=== PATIENT | female | born 1995 | race Asian ===

== ENCOUNTER → 2021-09-09 12:53 | Outpatient (CLI) | payer OTHER, SELFPAY ==
[2021-09-09 13:24] LABS: Appearance Urine UA CLEAR; Bilirubin Urine UA NEGATIVE (NEGATIVE); Color Urine UA YELLOW; Glucose Urine UA NEGATIVE (Negative); Ketones Urine UA NEGATIVE (NEGATIVE); Leukocyte Esterase Urine UA NEGATIVE (NEGATIVE); Nitrite Urine UA NEGATIVE (Negative); Occult Blood Urine UA NEGATIVE (Negative); Protein Urine UA NEGATIVE (Negative); Urobilinogen Urine UA 0.2 E.U./dL (0.2)
[2021-09-09 13:40] LABS: Add Manual Diff / Slide Review NO; Basophils Absolute Auto 100 /uL (0-100); Basophils Percent Auto 0.6 % (0-2); Eosinophils Absolute Auto 100 /uL (0-450); Eosinophils Percent Auto 0.9 % (2-4); Hematocrit 38.5 % (36-46); Hemoglobin 12.7 g/dL (12.0-16.0); Lymphocytes Absolute Auto 1600 /uL (1100-4500); Lymphocytes Percent Auto 12.3 % (25-40); Mean Corpuscular HGB Conc 32.9 % (30-36); Mean Corpuscular Hemoglobin 27.2 PG (26-34); Mean Corpuscular Volume 82.9 fL (80-100); Monocytes Absolute Auto 700 /uL (0-900); Monocytes Percent Auto 5.9 % (3-14); Neutrophils Absolute Auto 10100 /uL (1500-7000); Neutrophils Percent Auto 80.3 % (50-75); Platelet Count 318 X10^3/uL (150-400); Red Blood Cell Count 4.65 X10^6/uL (4.0-5.2); Red Cell Distribution Width 13.6 % (11.6-14.8); White Blood Cell Count 12.6 X10^3/uL (4.5-11.0)
[2021-09-09 16:40] LABS: Hepatitis B Surface Antigen NEGATIVE s/c (NEGATIVE); Rubella Antibody IgG 28.4 IU/mL (>15)
[2021-09-09 16:49] LABS: HIV 1 & 2 Ab/Ag 4th Gen Combo NEGATIVE (NEGATIVE); Hep C Virus Ab w/Reflex Quant NEGATIVE s/c (NEGATIVE)
[2021-09-10 14:01] LABS: Varicella IgG Antibody 211 index (Immune >165)
== END ==
PROVIDERS: Referring Provider Family Medicine; Visit Provider Family Medicine
DX: Z34.00 Encounter for supervision of normal first pregnancy, unspecified trimester (principal)
CPT/HCPCS: 36415; 80055; 81003; 86787; 86803; 86850; 86900; 86901; 87086; 87389

== ENCOUNTER 2021-10-12 10:56 | Emergency (ER) | payer OTHER, SELFPAY ==
[2021-10-12 11:05] VITALS: BP 117/57; PULSE 64; RESP 16; TEMP 36.2; O2SAT 100; BMI 25.4
[2021-10-12 12:04] VITALS: O2SAT 99
[2021-10-12 12:30] VITALS: PULSE 68; O2SAT 100
[2021-10-12 12:31] VITALS: BP 111/67; PULSE 66; O2SAT 100
--- NOTE | 2021-10-12 12:42 | ED_ITS ---
HPI - Extremity Problem <YULIYA Hobbs - Last Filed: 10/12/21 18:59> General Chief complaint: Extremity Problem,Nontraumatic Stated complaint: Pain in both legs/lower back. 15 wks Time Seen by Provider: 10/12/21 12:05 Source: patient Mode of arrival: Ambulatory History of Present Illness HPI Narrative: 26-year-old female who is 14 weeks presents to the emergency department complaining of low back pain with sharp shooting pain down her buttocks and down her legs, she says bilateral and occasional. Patient states this started approximately 3 days ago, and she has never had this pain in the past, she denies any weakness, loss of bowel or bladder, states the pain is sharp and travels like a nerve/shoots down and then goes away. She states that she is afraid to because spasms will come on all of a sudden. She has only taken Tylenol home, she has not tried any other remedies. She denies any difficulty walking, she denies any sensation changes all of the time but she does endorse numbness and tingling when the pain shoots down her leg. She says this happened on both sides and her pain is in the middle of her lower back. Related Data Home Medications Medication Instructions Recorded Confirmed ascorbic acid (vitamin C) 1,000 mg 1 g PO Q6H 09/09/21 09/09/21 tablet cholecalciferol (vitamin D3) 50 50 mcg PO DAILY 09/09/21 09/09/21 mcg (2,000 unit) capsule prenat.vits,zi,[id number] 1 tab PO DAILY 09/09/21 09/09/21 Previous Rx's Medication Instructions Recorded lidocaine 5 % topical patch 1 patch TOPICAL DAILY PRN #15 ea 10/12/21 (Lidoderm) Allergies Allergy/AdvReac Type Severity Reaction Status Date / Time No Known Drug Allergies Allergy Verified 10/12/21 11:05 Review of Systems <YULIYA Hobbs - Last Filed: 10/12/21 18:59> Review of Systems Narrative: General: denies fever, chills, malaise, sweats, fatigue Head/Neck: denies headache, neck pain, dizziness Eyes: denies visual changes, eye pain Cardio: denies chest pain, palpitations, edema Respiratory: denies dyspnea, cough, orthopnea GI: 14 weeks , denies abdominal pain, nausea, vomiting, or diarrhea : denies dysuria, hematuria, urinary retention, frequency or incontinence MSK: denies joint pain, muscle weakness, endorses low back pain with sciatica Skin: denies rash, itching, skin lesions or other Neuro: denies numbness, tingling Patient History <YULIYA Hobbs - Last Filed: 10/12/21 18:59> Social History marital status: unmarried,living together number of children: 0 household members: significant other lives independently: Yes housing: house pets and animals: No education level: college occupational status: unemployed current occupational exposures/hazards: No sp/episcopalian: Jehov[employer] Witness travel history: recent ([facility]) and over 6 months ago seatbelt use: always water heater temp set < 120 deg: Yes working smoke detector in home: Yes fire extinguisher in home: Yes carbon monox detector in home: Yes firearms in home: No do you feel safe at home: Yes Smoking Status: Never smoker second hand exposure: No alcohol intake: former substance use type: does not use during the past year weight has: remained stable well-balanced diet: daily or most days daily servings fruits/ve-4 caffeine: Yes (Limit 200 mg) eating out: 1-3 times/week Type(s) of exercise: walking and regular exercise Smoking Status: Never smoker Substance Use Type: does not use Exam <YULIYA Hobbs - Last Filed: 10/12/21 18:59> Narrative Exam Narrative: Independently reviewed vitals signs and nursing notes. General: cooperative, comfortable, in no acute distress, well developed and well groomed Head: atraumatic, symmetrical facial expressions Neck: supple, atraumatic, without lymphadenopathy. Eyes: pupils equal round and reactive, EOMI, conjunctiva normal Nose: nares patent, no rhinorrhea Mouth/Throat: uvula midline, moist mucus membranes Cardiovascular: regular rate and rhythm, no peripheral edema, warm extremities Respiratory: normal effort, able to speak in complete sentences, no audible wheezing, stridor, or rales. No retractions or tachypnea. GI: Gravid, fundus below the umbilicus, abdomen soft, no masses, no exquisite tenderness with exam, without guarding or rebound. MSK: moves all extremities, ambulatory w/steady gait, neurovascularly intact, no weakness Skin: brisk capillary refill, no rash, no erythema Neuro: normal speech and cognition, A&O x3, normal tone Psych: mental status is grossly normal, congruent mood, normal affect, pleasant and cooperative Initial Vital Signs Initial Vital Signs: Vital Signs Temperature 97.1 F L 10/12/21 11:05 Pulse Rate 64 10/12/21 11:05 Respiratory Rate 16 10/12/21 11:05 Blood Pressure 117/57 L 10/12/21 11:05 Pulse Oximetry 100 10/12/21 11:05 <Dione Saldaña DO - Last Filed: 10/13/21 07:46> Initial Vital Signs Initial Vital Signs: Vital Signs Temperature 97.1 F L 10/12/21 11:05 Pulse Rate 64 10/12/21 11:05 Respiratory Rate 16 10/12/21 11:05 Blood Pressure 117/57 L 10/12/21 11:05 Pulse Oximetry 100 10/12/21 11:05 Course <REGINALDO HobbsP - Last Filed: 10/12/21 18:59> Orders Ordered: Discontinued Medications Lidocaine (Lidocaine Patch 1 Each Adh..Patch) 1 each TOP DAILY [facility] Last Admin: 10/12/21 13:11 Dose: 1 each Documented by: NYDIA Vital Signs Vital signs: Vital Signs - 8 hr 10/12/21 11:05 10/12/21 12:04 10/12/21 12:30 Temperature 97.1 F L Pulse Rate 64 68 Respiratory Rate 16 Blood Pressure 117/57 L Pulse Oximetry 100 99 100 10/12/21 12:31 10/12/21 13:00 Temperature Pulse Rate 66 74 Respiratory Rate Blood Pressure 111/67 114/71 Pulse Oximetry 100 98 <Dione Saldaña DO - Last Filed: 10/13/21 07:46> Orders Ordered: Discontinued Medications Lidocaine (Lidocaine Patch 1 Each Adh..Patch) 1 each TOP DAILY [facility] Last Admin: 10/12/21 13:11 Dose: 1 each Documented by: NYDIA Vital Signs Vital signs: Vital Signs - 8 hr 10/12/21 11:05 10/12/21 12:04 10/12/21 12:30 Temperature 97.1 F L Pulse Rate 64 68 Respiratory Rate 16 Blood Pressure 117/57 L Pulse Oximetry 100 99 100 10/12/21 12:31 10/12/21 13:00 Temperature Pulse Rate 66 74 Respiratory Rate Blood Pressure 111/67 114/71 Pulse Oximetry 100 98 MDM - Extremity (Nontraumatic) <Teri Lester Bharathjenny, [facility] - Last Filed: 10/12/21 18:59> [facility] Narrative Medical decision making narrative: 26-year-old 15 week female presents to the emergency department for low back pain with bilateral sciatica which started about a week ago but has been worse over the last 2 days. Patient denies any trauma, she denies any known trigger for this, she denies any history of this happening in the past. Patient denies any weakness, she is ambulatory, she has taken Tylenol. This is most likely low back pain with sciatica, she was given a lidocaine patch today and encouraged to follow up with her primary care provider for a referral to physical therapy. Patient was given a prescription for lidocaine patches, encourage heat, rest, light activity, stretching, and she was given a work note. She has not had any incontinence, weakness, sensation changes other than sciatica. Patient is appropriate and amenable to discharge home. Vital signs are stable on repeat examination is unremarkable. Patient has been informed of results. Patient has been given strict return to ER precautions for any new or worsening symptoms. Patient understands to follow up closely with outpatient providers as instructed. Patient understands plan and agrees to discharge home. All questions and concerns answered at this time. Discharge Plan Departure Patient Disposition: Home Clinical Impression: Acute low back pain with sciatica Qualifiers: Back pain laterality: bilateral Sciatica laterality: bilateral sciatica Qualified Code(s): M54.42 - Lumbago with sciatica, left side Instructions: DI for -- Discomforts and Remedies, DI for Back Pain With Sciatica Activity Restrictions/Additional Instructions: *You have been diagnosed with low back pain with sciatica. This may be due to a herniated disc with an inflamed nerve. Radiculopathy is the term used to describe symptoms produced by a pinching of a nerve root in the spinal column. Sciatica is one of the most common types of radiculopathy and refers to the pain that starts in your lower back and travels through your buttocks and down the sciatic nerve in your legs. Please see Dr. Bonilla and ask for a physical therapy referral tomorrow. You may use a heat pack, rest, gentle exercise like walking, and stretching he is to help with this. Acupuncture and massage are other options. Please use the lidocaine patches as needed to numb some of this pain in your back. You may use 1 patch per day. I hope you start feeling lalit r soon, Tylenol is the best option for your pain. *What to do: *Please continue to take your regular medications as directed. [x ] New medication prescriptions sent to your pharmacy: [ DOD] [ ] New medication written as a paper prescription [ ] No new medications given *Please follow up with your primary care provider in 2-3 days, call for an appointment. Let them know you were seen in the Emergency Department and that we asked that you be seen for follow-up. We will electronically transmit a record of today's note if your PCP is in our system *If you do not have a primary care provider please contact [phone] to establish care with one of [facility] primary care providers. *Return to Emergency Department if you should have any new, worsening or concerning symptoms, such as [fever greater than 101F, chills, worsening pain, persistent vomiting or other bothersome symptoms] Prescriptions: New lidocaine [Lidoderm] 5 % adhesive patch,medicated 1 patch topical DAILY PRN (Reason: back pain) Qty: 15 0RF Rx Instructions: leave on most painful area for up to 12 hrs No Action prenat.vits,zi,[id number] Tablet 1 tab PO DAILY 0RF cholecalciferol (vitamin D3) 50 mcg (2,000 unit) capsule 50 mcg PO DAILY 0RF ascorbic acid (vitamin C) 1,000 mg tablet 1 g PO Q6H 0RF Referrals: Tamie Bonilla MD [Primary Care Provider] - Stand Alone Forms: Work Release Note <Dione Saldñaa DO - Last Filed: 10/13/21 07:46> [facility] ED Attending Chuchoature Attestation: I was immediately available in the department for consultation. Documentation has been reviewed. I agree with assessment and plan.
[2021-10-12 13:00] VITALS: BP 114/71; PULSE 74; O2SAT 98
[2021-10-12] MEDS: LIDOCAINE PATCH 1 EACH ADH..PATCH TOP (13:11)
== END 2021-10-12 13:12 | disposition home or self-care (01) ==
PROVIDERS: Emergency Provider Nurse Practitioner Critical Care Medicine; PCP Family Medicine
DX: O26.892 Other specified pregnancy related conditions, second trimester (principal); M54.42 Lumbago with sciatica, left side; M54.41 Lumbago with sciatica, right side; Z3A.14 14 weeks gestation of pregnancy
CPT/HCPCS: 99282; 99283

== ENCOUNTER → 2021-11-27 09:45 | Outpatient (CLI) | payer OTHER, SELFPAY ==
[2021-11-27 12:36] LABS: Urine N gonorrhoeae NOT DETECTED
[2021-11-27 12:54] LABS: Urine Chlamydia NOT DETECTED
[2021-11-30 13:11] LABS: AFP, Serum 54.6 ng/mL (.); Estriol, Free 1.94 ng/mL (.); Inhibin A, Dimeric 146.94 pg/mL (.); Inhibin A, MoM 0.71 (.); Maternal Weight 160 lbs (.); Number of Fetuses No (.); OSBR Risk 1 IN 10000 (.); Results Report (.); Test Results *Screen Negative* (.); hCG, MoM 0.34 (.); hCG, Serum 8222 mIU/mL (.)
== END ==
PROVIDERS: PCP Family Medicine; Referring Provider Family Medicine; Visit Provider Family Medicine
DX: Z34.00 Encounter for supervision of normal first pregnancy, unspecified trimester (principal); Z3A.16 16 weeks gestation of pregnancy
CPT/HCPCS: 36415; 82105; 82677; 84702; 86336; 87491; 87591

== ENCOUNTER → 2022-01-11 14:27 | Outpatient (CLI) | payer OTHER, SELFPAY ==
[2022-01-11 16:04] LABS: Add Manual Diff / Slide Review NO; Basophils Absolute Auto 100 /uL (0-100); Basophils Percent Auto 0.7 % (0-2); Eosinophils Absolute Auto 100 /uL (0-450); Eosinophils Percent Auto 0.7 % (2-4); Hematocrit 34.4 % (36-46); Hemoglobin 11.4 g/dL (12.0-16.0); Lymphocytes Absolute Auto 1300 /uL (1100-4500); Lymphocytes Percent Auto 10.3 % (25-40); Mean Corpuscular HGB Conc 33.1 % (30-36); Mean Corpuscular Volume 84.6 fL (80-100); Monocytes Absolute Auto 700 /uL (0-900); Monocytes Percent Auto 5.4 % (3-14); Neutrophils Absolute Auto 10100 /uL (1500-7000); Neutrophils Percent Auto 82.9 % (50-75); Platelet Count 336 X10^3/uL (150-400); Red Blood Cell Count 4.07 X10^6/uL (4.0-5.2); Red Cell Distribution Width 13.5 % (11.6-14.8); White Blood Cell Count 12.2 X10^3/uL (4.5-11.0)
[2022-01-11 17:31] LABS: GTT (PREG) 1 Hour PP 50gm Dose 87 mg/dL (76-139)
== END ==
PROVIDERS: PCP Family Medicine; Referring Provider Family Medicine; Visit Provider Family Medicine
DX: Z34.92 Encounter for supervision of normal pregnancy, unspecified, second trimester (principal); Z3A.24 24 weeks gestation of pregnancy
CPT/HCPCS: 36415; 82950; 85025

== ENCOUNTER → 2022-02-18 09:59 | Outpatient (CLI) | payer OTHER, SELFPAY ==
[2022-02-18 11:22] LABS: TSH w/ Reflex to FT4 0.68 uIU/mL (0.47-4.68)
== END ==
PROVIDERS: PCP Family Medicine; Referring Provider Family Medicine; Visit Provider Family Medicine
DX: R00.2 Palpitations (principal)
CPT/HCPCS: 36415; 84443

== ENCOUNTER → 2022-03-12 13:34 | Outpatient (CLI) | payer OTHER, SELFPAY ==
[2022-03-13 09:28] LABS: Strep Grp B PCR NEG for Grp B Strep
== END ==
PROVIDERS: PCP Family Medicine; Visit Provider Family Medicine
DX: Z36.85 Encounter for antenatal screening for Streptococcus B (principal)
CPT/HCPCS: 87653

== ENCOUNTER 2022-04-01 19:13 | Outpatient (CLI) | payer OTHER, SELFPAY | END 2022-04-01 20:20 | disposition home or self-care (01) | LOC: LABOR 19:16 → OB 04-06 14:09 | PROVIDERS: PCP Family Medicine; Referring Provider Family Medicine; Visit Provider Family Medicine | DX: O47.1 False labor at or after 37 completed weeks of gestation (principal); Z3A.39 39 weeks gestation of pregnancy | CPT/HCPCS: 59025; 84112; G0378; G0379 ==

== ENCOUNTER 2022-04-08 12:28 | Outpatient (CLI) | payer OTHER, SELFPAY ==
--- NOTE | 2022-04-08 13:25 | PM.OBTRLD ---
Visit Information Visit Information Date of evaluation: 04/08/22 Primary OB Provider: Tamie Bonilla On-call OB Provider: Jessica Bradley Reason for Evaluation: Yes rule out labor Vital Signs Vital Signs: Temperature 36.3? blood pressure 122/86 heart rate 66 PFSH Social History marital status: unmarried,living together number of children: 0 household members: significant other lives independently: Yes housing: house pets and animals: No education level: college occupational status: unemployed current occupational exposures/hazards: No sp/uatsdin: Yarsanism travel history: recent ([place]) and over 6 months ago seatbelt use: always water heater temp set < 120 deg: Yes working smoke detector in home: Yes fire extinguisher in home: Yes carbon monox detector in home: Yes firearms in home: No do you feel safe at home: Yes Smoking Status: Never smoker second hand exposure: No alcohol intake: former substance use type: does not use during the past year weight has: remained stable well-balanced diet: daily or most days daily servings fruits/ve-4 caffeine: Yes (Limit 200 mg) eating out: 1-3 times/week Type(s) of exercise: walking and regular exercise Evaluation Evaluation Baseline heart rate: 130 Variability: Moderate (11-25) monitor accelerations: Present Monitor Decelerations: Absent Contraction Frequency (minutes): 10 Category of Tracing: Reactive Diagnosis, Plan/Disposition Final Diagnosis (1) 40 weeks gestation of : Status: Acute Plan/Disposition Plan: 26-year-old at 40 weeks and 5 days gestation here for labor rule out. NST reactive. SVE unchanged from clinic yesterday. Contractions are still quite far part, every 8-10 minutes. Patient may discharge home and return when contractions are closer together, for leaking of fluid or any other concerns. OB Disposition: home
== END 2022-04-08 13:30 | disposition home or self-care (01) ==
LOC: LABOR 13:29 → OB 04-12 09:34
PROVIDERS: PCP Family Medicine; Referring Provider Family Medicine; Visit Provider Family Medicine
DX: O48.0 Post-term pregnancy (principal); Z3A.40 40 weeks gestation of pregnancy
CPT/HCPCS: 59025; G0378; G0379

== ENCOUNTER 2022-04-11 18:20 | Inpatient (IN) | payer OTHER, SELFPAY ==
[2022-04-11 19:29] VITALS: BP 137/92
[2022-04-11 20:06] LABS: Add Manual Diff / Slide Review NO; Basophils Absolute Auto 100 /uL (0-100); Basophils Percent Auto 1.3 % (0-2); Eosinophils Absolute Auto 0 /uL (0-450); Eosinophils Percent Auto 0.3 % (2-4); Hematocrit 38.7 % (36-46); Hemoglobin 12.9 g/dL (12.0-16.0); Lymphocytes Absolute Auto 1500 /uL (1100-4500); Lymphocytes Percent Auto 22.8 % (25-40); Mean Corpuscular HGB Conc 33.3 % (30-36); Mean Corpuscular Hemoglobin 28.5 PG (26-34); Mean Corpuscular Volume 85.6 fL (80-100); Monocytes Absolute Auto 400 /uL (0-900); Monocytes Percent Auto 5.5 % (3-14); Neutrophils Absolute Auto 4700 /uL (1500-7000); Neutrophils Percent Auto 70.1 % (50-75); Platelet Count 171 X10^3/uL (150-400); Red Blood Cell Count 4.52 X10^6/uL (4.0-5.2); Red Cell Distribution Width 16.6 % (11.6-14.8); White Blood Cell Count 6.7 X10^3/uL (4.5-11.0)
[2022-04-11] MEDS: miSOPROStoL 25 MCG TABLET VAG (20:14)
[2022-04-11 21:01] LABS: COVID19 -Nasal RAPID Negative (Negative)
[2022-04-12] MEDS: miSOPROStoL 25 MCG TABLET VAG (00:22)
[2022-04-12] MEDS: fentaNYL 100 MCG/2 ML INJ 50 MCG IV ×3 (02:21→04:56)
[2022-04-12] MEDS: LACTATED RINGERS 1,000 ML 100 ML IV ×2 (04:57→12:59)
[2022-04-12] MEDS: TERBUTALINE 1 MG/ML VIAL 0.25 MG SUBCUT (05:26)
--- NOTE | 2022-04-12 06:09 | P.HPOB_ITS ---
OB HPI Date/Time Date of admission: 04/11/22 Date Patient Seen: 04/12/22 Time Patient Seen: 05:35 History of Present Condition Chief complaint: LICO Calculator Estimated Delivery Date Method Current WG Current Estimate 04/03/22 Manual 41w 2d Final LICO - NAYLA Other Estimates 04/03/22 LMP (Uncertain) 41w 2d 04/07/22 Ultrasound #1 40w 5d Estimated Gestational Age (weeks): 41w2d : 1 Para: 0 Narrative: 26yo at 41w2d here for post-dates IOL. Pts has been uncomplicated. 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 She denies any vaginal bleeding or LOF prior to presentation. She was ambrosio intermittently, but not frequently. She has been feeling her baby move regularly. care: good care, initiated at week # (11) and pounds weight gain (45) Dating criteria OB: LMP confirmed by 1st trimester US Ultrasounds: normal 1st trimester US and normal mid trimester US Obstetrical complications: none Medical complications OB: neurological (Chowdary's palsy) Indications Indication for induction OB: post dates Preadmission Labs Last OB Lab Results: Blood Type A Positive 04/11/22 19:50 Antibody Screen Negative 04/11/22 19:50 Hematocrit 38.7 % (36-46) 04/11/22 19:50 Hemoglobin 12.9 g/dL (12.0-16.0) 04/11/22 19:50 Hepatitis B Surface Antigen Negative s/c (NEGATIVE) 09/09/21 12 :57 Hepatitis C Antibody Negative s/c (NEGATIVE) 09/09/21 12:57 Rubella Antibody 28.4 IU/mL (>15) 09/09/21 12:57 Varicella-Zoster IgG Antibody 211 index (Immune >165) 09/09/21 12:57 Glucose 1 Hour 87 mg/dL (76-139) 01/11/22 15:37 Group B Streptococcus (PCR) Neg for grp b strep 03/12/22 13:34 -: Chlamydia screen: negative, Gonorrhea screen: negative and Urine: negative Genetic Screens: Quad screen: Normal External Labs -: Urine: negative Evaluation Evaluation Baseline heart rate: 130 Variability: Moderate (11-25) monitor accelerations: Present Monitor Decelerations: Variable Contraction Frequency (minutes): 3 Status: Category ll Dilation (cm): 4 Effacement (%): 90 station: -1 [facility] Social History marital status: unmarried,living together number of children: 0 household members: significant other lives independently: Yes housing: house pets and animals: No education level: college occupational status: unemployed current occupational exposures/hazards: No sp/scientologist: Congregational travel history: recent ([place]) and over 6 months ago seatbelt use: always water heater temp set < 120 deg: Yes working smoke detector in home: Yes fire extinguisher in home: Yes carbon monox detector in home: Yes firearms in home: No do you feel safe at home: Yes Smoking Status: Never smoker second hand exposure: No alcohol intake: former substance use type: does not use during the past year weight has: remained stable well-balanced diet: daily or most days daily servings fruits/ve-4 caffeine: Yes (Limit 200 mg) eating out: 1-3 times/week Type(s) of exercise: walking and regular exercise Meds Home Medications and Allergies Home Medications Medication Instructions Recorded Confirmed Type ascorbic acid (vitamin C) 1,000 mg 1 g PO Q6H 09/09/21 04/11/22 History tablet cholecalciferol (vitamin D3) 50 50 mcg PO DAILY 09/09/21 04/11/22 History mcg (2,000 unit) capsule prenat.vits,zi,[id number] 1 tab PO DAILY 09/09/21 04/11/22 History lidocaine 5 % topical patch 1 patch topical DAILY PRN back 10/12/21 04/11/22 Rx (Lidoderm) pain #15 ea sertraline 50 mg tablet 50 mg PO DAILY 12/25/21 04/11/22 History Belt #1 ea 01/11/22 04/11/22 Rx Allergies Allergy/AdvReac Type Severity Reaction Status Date / Time No Known Drug Allergies Allergy Verified 03/29/22 10:55 OB Exam Narrative Exam Narrative: Gen: NAD, sitting comfortably in bed, appears well CV: RRR, no murmurs Resp: clear to auscultation bilaterally Abd: soft, nontender, gravid Ext: no edema Objective Labs Result Diagrams: 04/11/22 19:50 Labs: Laboratory Results - last 24 hr 04/11/22 04/11/22 04/11/22 19:50 19:50 19:50 WBC 6.7 RBC 4.52 Hgb 12.9 Hct 38.7 MCV 85.6 MCH 28.5 MCHC 33.3 RDW 16.6 H Plt Count 171 Neut % (Auto) 70.1 Lymph % (Auto) 22.8 L Brown % (Auto) 5.5 Eos % (Auto) 0.3 L Baso % (Auto) 1.3 Neut # (Auto) 4700 Lymph # (Auto) 1500 Brown # (Auto) 400 Eos # (Auto) 0 Baso # (Auto) 100 SARS-CoV-2 (PCR) Negative Blood Type A Positive Antibody Screen Negative Assessment and Plan Assessment and Plan Assessment and Plan narrative: 26yo at 41w2d here for post-dates IOL. GBS negative, Rh positive. Received 2 doses of cytotec overnight. Pt now with regular painful contractions. Pt with SROM and thin meconium present. Developed recurrent deep variable decels to the 60s. Terbutaline was administered due to tachysystole with contractions every minute. Contractions spaced to every 3-4 minutes. Decels and variability improved significantly. - Expectant management. Will closely monitor FHT, allow fetus additional recovery time prior to initiation of any measures to progress labor further. Plan to place IUPC to allow for amnioinfusion if recurrent variables start again. - FHT currently Category I but recently Category II with recurrent variable dec els as above. - GBS negative, no prophylaxis needed - Epidural just placed for pain control
--- NOTE | 2022-04-12 06:46 | P.PCN_ITS ---
Regional Block Pre-procedure Procedure: Continuous Lumbar Epidural for L&D Attending OB provider: Tamie Bonilla PMH/ROS narrative: term induction, no complications ASA Class: II Labs: Hct 38.7 % (36-46) 04/11/22 19:50 Plt Count 171 X10^3/uL (150-400) 04/11/22 19:50 Medications: Current Medications Generic Name Dose Route Start Last Admin Trade Name Freq PRN Reason Stop Dose Admin Calcium Carbonate 1,000 mg 04/11/22 19:28 Calcium Carbonate 500 Mg Tab PO Q2HR PRN Dyspepsia Carboprost Tromethamine 250 mcg 04/11/22 19:28 Carboprost 250 Mcg/Ml Ampul IM Q90M PRN Bleeding Diphenhydramine HCl 25 mg 04/12/22 05:19 Diphenhydramine 50 Mg/Ml Vial IV Q10M PRN Pruritis Fentanyl 50 mcg 04/11/22 19:28 04/12/22 04:56 Fentanyl 100 Mcg/2 Ml Inj IV 50 mcg Q1H PRN Administration Pain, Moderate (4-6) Oxytocin/Lactated Ringer's 30 unit in 500 mls @ 200 mls/hr 04/11/22 19:28 Oxytocin Premix IV CONT PRN Bleeding Protocol Oxytocin/Lactated Ringer's 30 unit in 500 mls @ 3 mls/hr 04/11/22 19:30 Oxytocin Premix IV TITRATE VASHTI Protocol 3 MILLIUNIT/MIN Tranexamic Acid 1,000 mg/ 100 mls @ 200 mls/hr 04/11/22 19:28 Sodium Chloride IV NOW PRN Bleeding Lactated Ringer's 1,000 mls @ 100 mls/hr 04/11/22 19:30 04/12/22 04:57 Lactated Ringers IV 100 mls/hr CONT VASHTI Administration Bupivacaine HCl 25 ml/ Sodium 100 mls @ 6 mls/hr 04/12/22 05:30 Chloride EPIDURAL CONT VASHTI Methylergonovine Maleate 0.2 mg 04/11/22 19:28 Methylergonovine 0.2 Mg/Ml Vial IM NOW PRN Bleeding Methylergonovine Maleate 0.2 mg 04/11/22 19:28 Methylergonovine 0.2 Mg Tablet PO Q6HR PRN Heavy Bleeding Misoprostol 25 mcg 04/11/22 19:28 04/12/22 00:22 Misoprostol 25 Mcg Tablet VAG 25 mcg Q4HR PRN Administration IOL Misoprostol 1,000 mcg 04/11/22 19:28 Misoprostol 200 Mcg Tablet MD NOW PRN Bleeding Misoprostol 400 mcg 04/11/22 19:28 Misoprostol 200 Mcg Tablet SL NOW PRN Bleeding Misoprostol 800 mcg 04/11/22 19:28 Misoprostol 200 Mcg Tablet MD NOW PRN Bleeding Nalbuphine HCl 2.5 mg 04/12/22 05:19 Nalbuphine 20 Mg/Ml Ampul IV Q10M PRN Pruritis Naloxone HCl 0.2 mg 04/11/22 19:28 Naloxone 0.4 Mg/Ml Vial IV Q2MIN PRN Opiate Reversal Ondansetron HCl 4 mg 04/11/22 19:28 Ondansetron 4 Mg/2 Ml Inj IV Q4HR PRN Nausea And Vomiting Oxytocin 10 unit 04/11/22 19:28 Oxytocin 10 Unit/Ml Vial IM NOW PRN Bleeding Allergies: Allergies Allergy/AdvReac Type Severity Reaction Status Date / Time No Known Drug Allergies Allergy Verified 03/29/22 10:55 Procedure Insertion date: 04/12/22 Insertion time: 06:10 Prep/Local: betadine x3 and 1% lidocaine Interspace: L3-4 Needle: 18 gauge [employer] (CSE: 27g Pencan through Hustead, clear CSF, 1mL 0.25% bupiv MPF) Loss of resistance with: saline OMARI at (cm): 7 Catheter placed at SKIN (cm): 12 Catheter in SPACE (cm): 5 Insertion: No CSF, No Blood, No Paresthesia with insertion, No Paresthesia with injection and No Test dose reaction Initial Medications TEST DOSE time: 06:12 TEST DOSE: 1.5% lidocaine with epinephrine 1:200k (mL): 3 BOLUS DOSE time: 06:25 BOLUS DOSE med: other (infusate) Infusion INFUSION: 0.125% bupivacaine and with fentanyl 2 mcg/mL Initial rate (mL/hr): 7 Subsequent interventions: to CS Post-procedure Anesthesia time START: 05:56 Anesthesia time END: 09:46 Post-procedure Anesthesia Assessment: Yes CV function: HR/BP stable, Yes Resp function: RR/sat/airway adequate, Yes Mental status appropriate and No Anesthesia complications
[2022-04-12] MEDS: TERBUTALINE 1 MG/ML VIAL SUBCUT (08:45)
--- NOTE | 2022-04-12 09:17 | PM.PREOP ---
Pre-operative Note COVID-19 COVID-19 status: Negative Result date/Date tested (Pos, Neg/Pending): 04/11/22 Interval Note History & Physical reviewed/Exam performed by Physician: Yes Changes to H&P: No
--- NOTE | 2022-04-12 09:18 | P.PNOB_ITS ---
Date/Time Date Patient Seen: 04/12/22 Time Patient Seen: 09:18 Pain Control Pain control: epidural Pelvic Exam Dilation (cm): 6 Effacement (%): 90 station: 0 Amniotic membrane status: Ruptured Contractions Monitor mode: Internal Contraction frequency (min): 2 Contraction pattern: Regular Intrauterine tone measurement: 100 Status status: Category ll Heart Rate Baseline: 145 Monitor Accelerations: Absent Monitor Decelerations: Early Monitor Variability: Moderate Assessment and Plan Comments: 26yo at 41w2d here for post-dates IOL.? GBS negative, Rh positive.? Received 2 doses of cytotec overnight.? Pt developed regular painful contractions, and had SROM with thin meconium present. She then developed recurrent deep decels to the 60s. Position changes and oxygen did not improve FHT. Terbutaline was administered due to tachysystole, and her contractions effectively spaced to every 3-4 minutes. FHT improved. IUPC was placed, and the pt was noted to have an adequate contraction pattern. She then had repeated early decelerations, prior to prolonged deceleration to the 90s for 7 minutes, followed by rebound to the 150s for 1 minute, and then 2 minute decel to 110 prior to full recovery. Position changes were utilized. Terbutaline was again administered to slow contractions. The pt was found to be 6/90/0, with intermittent early decels currently. The baby has not been able to tolerate more active contractions/labor. Due to nonreassuring heart tones, and being remote from delivery, the decision was made to proceed with primary c- section. The risks of the procedure were discussed with the pt and her partner. These include, but are not limited to, bleeding/hemorrhage, infection, injury to other organs such as the bowel and bladder, injury to the fetus. The pt is agreeable to blood transfusion if medically necessary. The pt and her partner agreed to surgery, and the consent was signed and placed in her chart. The OR team was notified. 2g of Ancef will be administered and SCDs placed prior to surgery.
--- NOTE | 2022-04-12 09:38 | SUR.OPER ---
Supine on Padded OR bed, head on pillow, safety belt at thigh, arms secured on padded arm boards at <90 degrees abduction. Bump under right buttock. Legs uncrossed with pillow under knees, gel pad to heels, tape over blanket to lower legs.
[2022-04-12] MEDS: CEFAZOLIN 2 GM/100 ML PREMIX 100 ML IV (09:58)
--- NOTE | 2022-04-12 10:04 | SUR.OPER ---
VARGAS IN PLACE ON ADMIT
--- NOTE | 2022-04-12 10:08 | SUR.OPER ---
CORD BLOOD AND PLACENTA TO LABOR AND DELIVERY
--- NOTE | 2022-04-12 10:20 | SUR.OPER ---
TIME OF 1012
--- NOTE | 2022-04-12 10:26 | SUR.OPER ---
APGARS 8/9 MALE
[2022-04-12] MEDS: ACETAMINOPHEN IV 1,000 MG/100 ML VIAL 400 MG IV (10:43)
[2022-04-12 10:57] VITALS: BP 109/66; PULSE 86; RESP 17; TEMP 37.1; O2SAT 10
[2022-04-12 11:07] VITALS: BP 118/78; PULSE 84; RESP 22; O2SAT 99
[2022-04-12 11:13] VITALS: BP 122/75; PULSE 80; RESP 17; O2SAT 99
[2022-04-12 11:16] VITALS: BP 114/81; PULSE 94; RESP 18; O2SAT 99
[2022-04-12 11:17] VITALS: BP 121/70; PULSE 80; RESP 15; TEMP 36.6; O2SAT 99
[2022-04-12 11:22] VITALS: BP 119/73; PULSE 73; RESP 16; O2SAT 99
[2022-04-12 11:41] LABS: Creatinine Urine Random 217.3 mg/dL; Protein (Total) Urine Random 168 mg/dL (0-12); Protein Creatinine Ratio Urine 0.77 GRAM/24H
[2022-04-12 11:47] LABS: Albumin 2.8 g/dL (3.5-5.0); Alkaline Phosphatase 193 U/L (38-126); Aspartate Aminotransferase 102 IU/L (14-36); Bilirubin Total 0.6 mg/dL (0.2-1.3); Blood Urea Nitrogen 14 mg/dL (7-17); Carbon Dioxide 18 mmol/L (22-32); Chloride 103 mmol/L (98-107); Estimated Glomerular Filt Rate > 60 mL/min (>60); Globulin 2.7 g/dL (1.7-4.1); Glucose 111 mg/dL (70-100); HEMOLYSIS 17 (0-50); Potassium 4.5 mmol/L (3.4-5.1); Sodium 135 mmol/L (137-145); Total Protein 5.5 g/dL (6.3-8.2)
[2022-04-12 11:54] LABS: Alanine Aminotransferase 119 IU/L (<35)
[2022-04-12] MEDS: IBUPROFEN 600 MG TABLET PO ×2 (13:00→19:18)
--- NOTE | 2022-04-12 13:28 | PM.OBCS.1 ---
Operative Date/Time/Diagnoses Date of procedure: 04/12/22 Time of procedure: 09:55 Pre-op diagnosis: 41w2d gestation GBS negative Rh positive Gestational hypertension Nonreassuring heart tones Meconium stained amniotic fluid Post-op diagnosis: same Procedure & Clinicians Procedure: Primary Same procedure as scheduled: No Indications: Nonreassuring heart tones Surgeon: Tamie Bonilla Click Yes if Unassisted: No Placement Specialist: Chantell Jameson Anesthesia Type: Epidural Operative Notes Findings: Normal uterus, ovaries, and tubes Closure Type: primary Specimen(s): cord blood and cord pH Intraoperative meds administered: Acetaminophen, Duramorph, Ketorolac and Pitocin Estimated Blood Loss (mL): 950 Blood products transfused: none Procedure in detail: OPERATIVE COURSE: The patient was taken to the operating room where epidural anesthesia bolused. She was then prepared and draped in the normal sterile fashion in the dorsal supine position with a leftward tilt. Anesthesia was tested and found to be adequate. A Pfannensteil skin incision was then made with the scalpel and carried through to the underlying layer of fascia with the scalpel. The fascia was incised in the midline and the incision extended laterally with the Schaefer scissors. The superior aspect of the fascial incision was then grasped with Hugh clamps, elevated with the help of the surgical dressing maker, and the underlying rectus muscles dissected off bluntly and sharply where needed. Attention was then turned to the inferior aspect of the incision which, in a similar fashion, was grasped, tented up with Hugh clamps, and the rectus muscle dissected off bluntly and sharply with Schaefer scissors. The rectus muscles were then in the midline, and the peritoneum was identified and entered with Metzenbaum scissors. The peritoneal incision was then extended with good visualization of the bladder. Retraction was provided by the surgical dressing maker. The bladder blade was then inserted and the vesicouterine peritoneum identified, grasped with pick-ups and entered sharply with the Metzenbaum scissors. The incision was then extended laterally and the bladder flap created digitally. The bladder blade was then reinserted and the lower uterine segment incised in a transverse fashion with the scalpel, with the surgical dressing maker providing suction. The uterine incision was then extended superolaterally by pulling superolaterally on both sides. The bladder blade was removed the 's head was flexed out of OP position and delivered atraumatically, with fundal pressure by the surgical dressing maker. The nose and mouth were suctioned with bulb suction and the cord was clamped and cut after 1 minute. The infant cries spontaneously immediately after delivery. The was handed off to the waiting nursing staff. Cord blood was collected for Rh status. Cord gases were sent. The placenta was then delivered with gentle cord traction. The uterus was then cleared of all clots and debris. The uterine incision was repaired with O Vicryl in a running, locked fashion. A second layer of the same suture was used to obtain excellent hemostasis. The gutters were cleared of all clots. Hysterotomy was investigated and found to be hemostatic. The bladder flap was repaired with 2-O Chromic. The peritoneum was closed with 3-O Vicryl. The fascia was reapproximated with O-Vicryl in a running fashion. The subcutaneous tissue was reapproximated with 3-O Vicryl. The skin was closed with 4-O Vicryl. The surgical dressing maker helped with retraction and suture management during closures. SPONGE AND NEEDLE COUNTS: Correct x3. DRESSING: Aquacel ANTICOAGULATION: SCDs applied prior to Surgery Preop antibiotics given (see MAR). The patient was taken to recovery room having tolerated procedure well. Complications: none Baby 1: Infant Gender: Male Presentation: vertex Position: Right Occiput Posterior Placental Delivery Description: Spontaneous Cord Vessel Description: 3 Vessels and Nuchal Cord score (1 min): 8 score (5 min): 9 weight: 8 lb 2.126 oz Post-operative Condition: stable Disposition: PACU Aftercare: routine postop
[2022-04-12] MEDS: ACETAMINOPHEN 325 MG TABLET 650 MG PO (17:29)
[2022-04-12 17:38] LABS: Alanine Aminotransferase 113 IU/L (<35); Albumin 2.4 g/dL (3.5-5.0); Albumin Globulin Ratio 0.9 (1.0-2.8); Alkaline Phosphatase 163 U/L (38-126); Aspartate Aminotransferase 101 IU/L (14-36); BUN Creatinine Ratio 12.9 (6-22); Bilirubin Total 0.7 mg/dL (0.2-1.3); Blood Urea Nitrogen 15 mg/dL (7-17); Calcium 8.1 mg/dL (8.4-10.2); Carbon Dioxide 23 mmol/L (22-32); Chloride 105 mmol/L (98-107); Estimated Glomerular Filt Rate > 60 mL/min (>60); Globulin 2.6 g/dL (1.7-4.1); Glucose 88 mg/dL (70-100); HEMOLYSIS < 15 (0-50); Potassium 4.1 mmol/L (3.4-5.1); Sodium 133 mmol/L (137-145)
[2022-04-13] MEDS: IBUPROFEN 600 MG TABLET PO ×4 (01:35→18:44)
[2022-04-13] MEDS: ACETAMINOPHEN 325 MG TABLET 650 MG PO ×4 (01:35→18:45)
[2022-04-13 06:49] LABS: Add Manual Diff / Slide Review NO; Basophils Absolute Auto 100 /uL (0-100); Basophils Percent Auto 0.5 % (0-2); Eosinophils Absolute Auto 0 /uL (0-450); Eosinophils Percent Auto 0.2 % (2-4); Hematocrit 31.6 % (36-46); Hemoglobin 10.3 g/dL (12.0-16.0); Lymphocytes Absolute Auto 1900 /uL (1100-4500); Lymphocytes Percent Auto 13.2 % (25-40); Mean Corpuscular HGB Conc 32.6 % (30-36); Mean Corpuscular Hemoglobin 28.2 PG (26-34); Mean Corpuscular Volume 86.5 fL (80-100); Monocytes Absolute Auto 700 /uL (0-900); Neutrophils Absolute Auto 11500 /uL (1500-7000); Neutrophils Percent Auto 81.1 % (50-75); Platelet Count 141 X10^3/uL (150-400); Red Blood Cell Count 3.65 X10^6/uL (4.0-5.2); Red Cell Distribution Width 16.5 % (11.6-14.8); White Blood Cell Count 14.1 X10^3/uL (4.5-11.0)
[2022-04-13 07:03] LABS: Alanine Aminotransferase 114 IU/L (<35); Albumin 2.7 g/dL (3.5-5.0); Alkaline Phosphatase 181 U/L (38-126); Aspartate Aminotransferase 97 IU/L (14-36); Bilirubin Total 0.7 mg/dL (0.2-1.3); Blood Urea Nitrogen 14 mg/dL (7-17); Calcium 8.1 mg/dL (8.4-10.2); Carbon Dioxide 24 mmol/L (22-32); Chloride 104 mmol/L (98-107); Estimated Glomerular Filt Rate > 60 mL/min (>60); Globulin 2.7 g/dL (1.7-4.1); Glucose 84 mg/dL (70-100); HEMOLYSIS < 15 (0-50); Potassium 4.2 mmol/L (3.4-5.1); Sodium 134 mmol/L (137-145); Total Protein 5.4 g/dL (6.3-8.2)
--- NOTE | 2022-04-13 08:09 | PM.OBPN.1 ---
Subjective - OB Subjective Interval history: The pt is overall doing well. She has no specific concerns this morning. Her pain is well controlled. She has passed flatus, voided, and ambulated. She denies any headaches, vision changes, RUQ pain. She has mild edema. She has been as well as formula supplementing due to concerns about supply and latch. Exam Vital Signs (past 8 hours): Oxygen Delivery Method Room Air Narrative Exam Narrative: Gen: NAD, sitting comfortably in bed, appears well CV: RRR, no murmurs Resp: clear to auscultation bilaterally Abd: soft, nondistended, appropriately tender, fundus firm and below umbilicus, normoactive bowel sounds Ext: trace edema Objective Labs Result Diagrams: 04/13/22 06:00 04/13/22 06:00 Labs: Laboratory Results - last 24 hr 04/12/22 04/12/22 04/12/22 11:13 17:00 Unknown WBC RBC Hgb Hct MCV MCH MCHC RDW Plt Count Neut % (Auto) Lymph % (Auto) [place] % (Auto) Eos % (Auto) Baso % (Auto) Neut # (Auto) Lymph # (Auto) [place] # (Auto) Eos # (Auto) Baso # (Auto) Sodium 135 L 133 L Potassium 4.5 4.1 Chloride 103 105 Carbon Dioxide 18 L 23 BUN 14 15 Creatinine 1.08 H 1.16 H Estimated GFR > 60 > 60 BUN/Creatinine Ratio 13.0 12.9 Glucose 111 H 88 Calcium 8.0 L 8.1 L Total Bilirubin 0.6 0.7 AST 102 H 101 H ALT 119 H 113 H Alkaline Phosphatase 193 H 163 H Total Protein 5.5 L 5.0 L Albumin 2.8 L 2.4 L Globulin 2.7 2.6 Albumin/Globulin Ratio 1.0 0.9 L U Random Total Protein 168 H Urine Creatinine 217.3 Protein/Creatinin Ratio 0.77 04/13/22 04/13/22 06:00 06:00 WBC 14.1 H D RBC 3.65 L Hgb 10.3 L Hct 31.6 L MCV 86.5 MCH 28.2 MCHC 32.6 RDW 16.5 H Plt Count 141 L Neut % (Auto) 81.1 H Lymph % (Auto) 13.2 L [place] % (Auto) 5.0 Eos % (Auto) 0.2 L Baso % (Auto) 0.5 Neut # (Auto) 78888 H Lymph # (Auto) 1900 [place] # (Auto) 700 Eos # (Auto) 0 Baso # (Auto) 100 Sodium 134 L Potassium 4.2 Chloride 104 Carbon Dioxide 24 BUN 14 Creatinine 1.17 H Estimated GFR > 60 BUN/Creatinine Ratio 12.0 Glucose 84 Calcium 8.1 L Total Bilirubin 0.7 AST 97 H ALT 114 H Alkaline Phosphatase 181 H Total Protein 5.4 L Albumin 2.7 L Globulin 2.7 Albumin/Globulin Ratio 1.0 U Random Total Protein Urine Creatinine Protein/Creatinin Ratio Assessment & Plan Assessment and Plan (1) S/P : Status: Acute (2) HELLP syndrome: Status: Acute (3) Non-reassuring heart tones, delivered, current hospitalization: Status: Acute Plan Comments: 26yo POD#1 s/p primary for nonreassuring heart tones. BP was noted to be elevated during labor, with labs showing elevated Protein/Creatinine and liver enzymes immediately . Platelets now down slightly as well. Pt meeting criteria for HELLP. BPs initially in good range with liver enzymes stable, now BPs rising slightly although still not in treatment range. Will start MgSO4 due to HELLP. Pt is currently asymptomatic. Pt otherwise doing well without concerns. She is hoping to work on more today. - 4g MgSO4 bolus followed by 2g/hr for 24hrs - Close BP monitoring - If consistently > 150/100, will initiate antihypertensives - Normal care - support with consult today Time Spent With Patient Time: Total time spent is greater than 50% in coordination of care (as documented) at patient's floor/unit and/or counseling patient: Time with patient: 15-24 minutes
[2022-04-13] MEDS: MAGNESIUM SULFATE 4 GM/100 ML PIGGYBACK IV (08:34)
[2022-04-13] MEDS: LACTATED RINGERS 1,000 ML 100 ML IV ×2 (08:36→16:59)
[2022-04-13] MEDS: DOCUSATE 100 MG CAPSULE 200 MG PO (08:36)
[2022-04-13] MEDS: PRENATAL VIT,CALC/IRON/FOLIC 1 TABLET 1 TAB PO (08:37)
[2022-04-13] MEDS: MAGNESIUM SULFATE 20 GM/500 ML IV.SOLN IV ×2 (09:32→19:02)
[2022-04-13] MEDS: OXYCODONE IR 5 MG TABLET PO ×2 (14:34→20:01)
[2022-04-14] MEDS: IBUPROFEN 600 MG TABLET PO ×4 (01:02→21:13)
[2022-04-14] MEDS: ACETAMINOPHEN 325 MG TABLET 650 MG PO ×4 (01:02→21:10)
[2022-04-14 06:25] LABS: Alanine Aminotransferase 81 IU/L (<35); Albumin 2.6 g/dL (3.5-5.0); Alkaline Phosphatase 177 U/L (38-126); Aspartate Aminotransferase 60 IU/L (14-36); BUN Creatinine Ratio 11.7 (6-22); Bilirubin Total 0.3 mg/dL (0.2-1.3); Blood Urea Nitrogen 11 mg/dL (7-17); Carbon Dioxide 27 mmol/L (22-32); Chloride 100 mmol/L (98-107); Estimated Glomerular Filt Rate > 60 mL/min (>60); Globulin 2.7 g/dL (1.7-4.1); Glucose 91 mg/dL (70-100); HEMOLYSIS < 15 (0-50); Potassium 3.6 mmol/L (3.4-5.1); Sodium 132 mmol/L (137-145); Total Protein 5.3 g/dL (6.3-8.2)
[2022-04-14 06:56] LABS: Calcium 6.4 mg/dL (8.4-10.2)
[2022-04-14 07:48] LABS: Magnesium 7.5 mg/dL (1.6-2.3)
[2022-04-14] MEDS: PRENATAL VIT,CALC/IRON/FOLIC 1 TABLET 1 TAB PO (08:14)
[2022-04-14] MEDS: DOCUSATE 100 MG CAPSULE 200 MG PO (08:14)
--- NOTE | 2022-04-14 08:19 | PM.OBPN.1 ---
Subjective - OB Subjective Interval history: The pt reports feeling slightly dizzy this morning. She denies any vision changes, headaches, RUQ pain, edema. Her lochia is appropriate. She is passing flatus, voiding, and ambulating. She is . Baby is latching well on the left but having difficulty on the right. Exam Vital Signs (past 8 hours): Oxygen Delivery Method Room Air Narrative Exam Narrative: Gen:? NAD, sitting comfortably in bed, appears well CV:? RRR, no murmurs Resp:? clear to auscultation bilaterally Abd:? soft, nondistended, appropriately tender, fundus firm and below umbilicus, normoactive bowel sounds, dressing d/i with small area dried blood unchanged from yesterday Ext:? trace edema, decreased from yesterday Objective Labs Result Diagrams: 04/13/22 06:00 04/14/22 06:07 Labs: Laboratory Results - last 24 hr 04/14/22 04/14/22 06:07 06:07 Sodium 132 L Potassium 3.6 Chloride 100 Carbon Dioxide 27 BUN 11 Creatinine 0.94 Estimated GFR > 60 BUN/Creatinine Ratio 11.7 Glucose 91 Calcium 6.4 L* Magnesium 7.5 H* Total Bilirubin 0.3 AST 60 H ALT 81 H Alkaline Phosphatase 177 H Total Protein 5.3 L Albumin 2.6 L Globulin 2.7 Albumin/Globulin Ratio 1.0 Assessment & Plan Assessment and Plan (1) S/P : Status: Acute (2) HELLP syndrome: Status: Acute (3) Non-reassuring heart tones, delivered, current hospitalization: Status: Acute Plan Comments: 26yo POD#2 s/p primary for nonreassuring heart tones.? Pt diagnosed with HELLP, on MgSO4 overnight. BPs remain in excellent range, liver enzymes trending back down. Plan to d/c MgSO4 after 24hrs. Pt asymptomatic, dizziness likely from MgSO4. - D/C MgSO4 - Close BP monitoring for 24hrs of MgSO4, plan for d/c tomorrow - If consistently > 150/100, will initiate antihypertensives - Normal care - support with consult again today especially to help with right side latch Time Spent With Patient Time: Total time spent is greater than 50% in coordination of care (as documented) at patient's floor/unit and/or counseling patient: Time with patient: 15-24 minutes
[2022-04-14] MEDS: OXYCODONE IR 5 MG TABLET PO ×2 (11:12→21:42)
[2022-04-14 16:26] LABS: Add Manual Diff / Slide Review NO; Basophils Absolute Auto 0 /uL (0-100); Basophils Percent Auto 0.3 % (0-2); Eosinophils Absolute Auto 0 /uL (0-450); Eosinophils Percent Auto 0.2 % (2-4); Hematocrit 31.6 % (36-46); Hemoglobin 10.4 g/dL (12.0-16.0); Lymphocytes Absolute Auto 1000 /uL (1100-4500); Lymphocytes Percent Auto 6.6 % (25-40); Mean Corpuscular HGB Conc 32.9 % (30-36); Mean Corpuscular Hemoglobin 28.3 PG (26-34); Mean Corpuscular Volume 86.1 fL (80-100); Monocytes Absolute Auto 600 /uL (0-900); Monocytes Percent Auto 3.7 % (3-14); Neutrophils Absolute Auto 13900 /uL (1500-7000); Neutrophils Percent Auto 89.2 % (50-75); Platelet Count 199 X10^3/uL (150-400); Red Blood Cell Count 3.67 X10^6/uL (4.0-5.2); White Blood Cell Count 15.6 X10^3/uL (4.5-11.0)
[2022-04-14 16:56] LABS: Alanine Aminotransferase 89 IU/L (<35); Albumin 2.8 g/dL (3.5-5.0); Alkaline Phosphatase 181 U/L (38-126); Aspartate Aminotransferase 70 IU/L (14-36); BUN Creatinine Ratio 12.4 (6-22); Bilirubin Total 0.3 mg/dL (0.2-1.3); Blood Urea Nitrogen 12 mg/dL (7-17); Calcium 6.9 mg/dL (8.4-10.2); Carbon Dioxide 29 mmol/L (22-32); Chloride 101 mmol/L (98-107); Estimated Glomerular Filt Rate > 60 mL/min (>60); Globulin 2.9 g/dL (1.7-4.1); Glucose 90 mg/dL (70-100); HEMOLYSIS < 15 (0-50); Potassium 3.8 mmol/L (3.4-5.1); Sodium 135 mmol/L (137-145); Total Protein 5.7 g/dL (6.3-8.2)
[2022-04-14] MEDS: AMPICILLIN 2,000 MG in SODIUM CHLORIDE 0.9% 100 ML 200 MG IV ×2 (17:28→23:59)
[2022-04-14] MEDS: CLINDAMYCIN 900 MG/50 ML PIGGYBACK 50 MG IV (18:02)
--- NOTE | 2022-04-14 18:14 | PC.NURSE ---
Magnesium sulfate discontinued at 0815
[2022-04-14] MEDS: GENTAMICIN 320 MG in SODIUM CHLORIDE 0.9% 100 ML 108 MG IV (18:56)
[2022-04-15] MEDS: CLINDAMYCIN 900 MG/50 ML PIGGYBACK 50 MG IV ×3 (01:50→17:38)
[2022-04-15] MEDS: IBUPROFEN 600 MG TABLET PO ×4 (04:11→22:45)
[2022-04-15] MEDS: ACETAMINOPHEN 325 MG TABLET 650 MG PO ×4 (04:12→22:45)
[2022-04-15] MEDS: OXYCODONE IR 5 MG TABLET PO ×2 (04:13→22:53)
[2022-04-15] MEDS: AMPICILLIN 2,000 MG in SODIUM CHLORIDE 0.9% 100 ML 200 MG IV ×4 (05:56→22:15)
[2022-04-15] MEDS: ONDANSETRON 4 MG/2 ML INJ IV (08:22)
[2022-04-15] MEDS: PRENATAL VIT,CALC/IRON/FOLIC 1 TABLET 1 TAB PO (09:05)
[2022-04-15] MEDS: DOCUSATE 100 MG CAPSULE 200 MG PO (09:05)
[2022-04-16] MEDS: CLINDAMYCIN 900 MG/50 ML PIGGYBACK 50 MG IV (03:08)
[2022-04-16] MEDS: IBUPROFEN 600 MG TABLET PO ×2 (06:05→12:02)
[2022-04-16] MEDS: OXYCODONE IR 5 MG TABLET PO (06:05)
[2022-04-16] MEDS: ACETAMINOPHEN 325 MG TABLET 650 MG PO ×2 (06:05→12:02)
[2022-04-16] MEDS: AMPICILLIN 2,000 MG in SODIUM CHLORIDE 0.9% 100 ML 200 MG IV (06:12)
[2022-04-16 07:00] VITALS: BP 148/88; PULSE 76
[2022-04-16] MEDS: LABETALOL 100 MG TABLET PO (07:00)
[2022-04-16] MEDS: DOCUSATE 100 MG CAPSULE 200 MG PO (08:44)
[2022-04-16] MEDS: PRENATAL VIT,CALC/IRON/FOLIC 1 TABLET 1 TAB PO (08:44)
[2022-04-16 09:13] LABS: Alanine Aminotransferase 78 IU/L (<35); Albumin Globulin Ratio 0.9 (1.0-2.8); Alkaline Phosphatase 210 U/L (38-126); Aspartate Aminotransferase 57 IU/L (14-36); BUN Creatinine Ratio 12.1 (6-22); Bilirubin Total 0.5 mg/dL (0.2-1.3); Blood Urea Nitrogen 11 mg/dL (7-17); Calcium 8.3 mg/dL (8.4-10.2); Carbon Dioxide 25 mmol/L (22-32); Chloride 101 mmol/L (98-107); Estimated Glomerular Filt Rate > 60 mL/min (>60); Globulin 3.3 g/dL (1.7-4.1); Glucose 138 mg/dL (70-100); HEMOLYSIS < 15 (0-50); Potassium 3.7 mmol/L (3.4-5.1); Sodium 135 mmol/L (137-145); Total Protein 6.3 g/dL (6.3-8.2)
[2022-04-16 09:31] LABS: Add Manual Diff / Slide Review NO; Basophils Absolute Auto 100 /uL (0-100); Basophils Percent Auto 0.4 % (0-2); Eosinophils Absolute Auto 100 /uL (0-450); Eosinophils Percent Auto 0.9 % (2-4); Hematocrit 30.6 % (36-46); Lymphocytes Absolute Auto 1000 /uL (1100-4500); Lymphocytes Percent Auto 6.9 % (25-40); Mean Corpuscular HGB Conc 32.8 % (30-36); Mean Corpuscular Hemoglobin 28.2 PG (26-34); Mean Corpuscular Volume 86.1 fL (80-100); Monocytes Absolute Auto 600 /uL (0-900); Monocytes Percent Auto 4.1 % (3-14); Neutrophils Absolute Auto 13000 /uL (1500-7000); Neutrophils Percent Auto 87.7 % (50-75); Platelet Count 246 X10^3/uL (150-400); Red Blood Cell Count 3.55 X10^6/uL (4.0-5.2); Red Cell Distribution Width 16.9 % (11.6-14.8); White Blood Cell Count 14.8 X10^3/uL (4.5-11.0)
--- NOTE | 2022-04-16 10:48 | PM.OBDS.1 ---
Discharge Providers Provider Date of admission: 04/11/22 18:20 Discharge Date: 04/16/22 Primary care physician: Tamie Bonilla MD Consults: 04/12/22 12:50 Consult to Denier Control Operator Routine Comment: Discharge provider: Tamie Bonilla MD Summary Hospital Course Date Patient Seen: 04/16/22 Time Patient Seen: 08:40 Diagnoses: 41w2d gestation GBS negative Rh positive Nonreassuring heart tones Meconium stained amniotic fluid HELLP syndrome endometritis Hospital Course: The pt presented for post-dates IOL. She received cytotec, and progressed into active labor. She had SROM with meconium-stained amniotic fluid. The pt had an epidural for pain control. The pt had tachysystole with recurrent deep variable decels, and terbutaline was administered. FHT improved, but then the pt had prolonged decel when she started to more actively contract again. The decision was made to proceed with primary for nonreassuring FHT. The surgery was without complications. The pts BPs were noted to be elevated throughout her hospital stay, not to severe range. Lab work revealed pre-eclampsia with HELLP with elevated liver enzymes. Her BPs were in excellent range, however her liver enzymes did not improved and then BP started to trend up again. PPD #1 MGSO4 was initiated, and continued for 24hrs. PPD#2 the pt developed a fever with fundal tenderness. She was treated with Ampicillin, Gentamicin, and Clindamycin for endometritis for 24hrs. The pt remained afebrile after treatment was initiated. The night prior to discharge, the pts BPs were noted to be elevated again. This was thought to be primarily a pain response, but she was initiated on Labetalol 100mg BID. This will continue . At the time of discharge she was voiding, ambulating, and passing flatus without difficulty. Her lochia was decreasing appropriately. Her pain was controlled. She was with formula supplementation. She will f/u in clinic in 3 days for BP and incision check. Peripartum Data Infant Delivery Method: Section Procedures: Primary 1: Gender: Male Disposition of : home Discharge Diagnosis (1) S/P : Status: Acute (2) HELLP syndrome: Status: Acute (3) Non-reassuring heart tones, delivered, current hospitalization: Status: Acute (4) endometritis: Status: Acute Status at Discharge Cognitive/behavioral status at discharge: oriented Functional status at discharge: independent ambulation Overall status at discharge: patient is not back to baseline Time Spent with Patient Time attestation: Total time spent providing and/or coordinating discharge services: Objective Labs Result Diagrams: 04/16/22 08:40 04/16/22 08:40 Labs: Laboratory Results - last 24 hr 04/16/22 04/16/22 08:40 08:40 WBC 14.8 H RBC 3.55 L Hgb 10.0 L Hct 30.6 L MCV 86.1 MCH 28.2 MCHC 32.8 RDW 16.9 H Plt Count 246 Neut % (Auto) 87.7 H Lymph % (Auto) 6.9 L [place] % (Auto) 4.1 Eos % (Auto) 0.9 L Baso % (Auto) 0.4 Neut # (Auto) 83387 H Lymph # (Auto) 1000 L [place] # (Auto) 600 Eos # (Auto) 100 Baso # (Auto) 100 Sodium 135 L Potassium 3.7 Chloride 101 Carbon Dioxide 25 BUN 11 Creatinine 0.91 Estimated GFR > 60 BUN/Creatinine Ratio 12.1 Glucose 138 H Calcium 8.3 L Total Bilirubin 0.5 AST 57 H ALT 78 H Alkaline Phosphatase 210 H Total Protein 6.3 Albumin 3.0 L Globulin 3.3 Albumin/Globulin Ratio 0.9 L Exam Vital Signs (past 8 hours): - 04/16/22 07:00 Pulse Rate 76 Blood Pressure 148/88 H Oxygen Delivery Method Room Air Narrative Exam Narrative: Gen:? NAD, sitting comfortably in bed, appears well CV:? RRR, no murmurs Resp:? clear to auscultation bilaterally Abd:? soft, nondistended, appropriately tender, fundus firm and below umbilicus, normoactive bowel sounds, dressing d/i with small area dried blood unchanged from yesterday Ext:? trace edema, decreased from yesterday Discharge Plan Discharge Plan Patient Disposition: Home Provider Discharge Comment: Please check your blood pressure at home twice/day. If it is > 160 on top or > 110 on the bottom, repeat it 15 minutes later. If it is still that high, please contact the systems development consultant provider over the weekend (via the clinic phone number). Discharge orders & Medications Prescriptions: New acetaminophen 325 mg Tablet 650 mg PO Q6H PRN (Reason: Fever/Mild Pain (1-3)) Qty: 60 0RF docusate sodium 100 mg Capsule 200 mg PO DAILY Qty: 30 0RF ibuprofen 600 mg Tablet 600 mg PO Q6H PRN (Reason: Fever/Mild Pain (1-3)) Qty: 60 0RF oxycodone 5 mg Tablet 5 mg PO Q4H PRN (Reason: Pain, Moderate (4-6)) Qty: 40 0RF labetalol 100 mg tablet 100 mg PO BID Qty: 60 2RF Continued (DME) Belt See Rx Instructions .Route .MEDSUPPLY Qty: 1 0RF Rx Instructions: As directed prenat.vits,[id number] Tablet 1 tab PO DAILY cholecalciferol (vitamin D3) 50 mcg (2,000 unit) capsule 50 mcg PO DAILY ascorbic acid (vitamin C) 1,000 mg tablet 1 g PO Q6H lidocaine [Lidoderm] 5 % adhesive patch,medicated 1 patch topical DAILY PRN (Reason: back pain) Qty: 15 0RF Rx Instructions: leave on most painful area for up to 12 hrs Discontinued sertraline 50 mg tablet 50 mg PO DAILY Label Comments: pt states she is not taking anymore Follow up/Referrals: Tamie Bonilla MD [Primary Care Provider] - 04/19/22 12:15 am Diet/Activity/Treatments Diet: Diet as Tolerated and Regular Skin/Wound/Dressing Care Report to your healthcare provider any signs of infection, such as:: chills, fever, increased pain and unusual drainage Visit Report/Discharge Packet Instructions: DI for , DI for Depression, DI for Pre-eclampsia, DI for Endometritis Visit Report Forms: Patient Portal/API, Stroke Signs & Symptoms Discharge Data Primary Care Provider: Tamie Bonilla
== END 2022-04-16 14:00 | disposition home or self-care (01) | DRG 788 ==
PROVIDERS: Admitting Provider Family Medicine; PCP Family Medicine; Referring Provider Family Medicine; Visit Provider Family Medicine
PROC: 10D00Z1 Extraction of Products of Conception, Low, Open Approach (ICD-10-PCS; CPT 59514; principal; 2022-04-12 10:00)
DX: O48.0 Post-term pregnancy (principal); Z3A.41 41 weeks gestation of pregnancy; Z37.0 Single live birth; O13.4 Gestational [pregnancy-induced] hypertension without significant proteinuria, complicating childbirth; O77.0 Labor and delivery complicated by meconium in amniotic fluid; O76 Abnormality in fetal heart rate and rhythm complicating labor and delivery; O14.24 HELLP syndrome, complicating childbirth; Z67.10 Type A blood, Rh positive; Z20.822 Contact with and (suspected) exposure to COVID-19; N80.9 Endometriosis, unspecified; O99.893 Other specified diseases and conditions complicating puerperium
CPT/HCPCS: 01967; 01968; 36415; 59025; 59050; 59510; 59514; 80053; 82570; 83735; 84156; 85025; 86850; 86900; 86901; 87635; C9803; G0379; J0131; J0290; J0690; J1100; J2274; J2405; J2590; J2765; J3010; J3475

== ENCOUNTER → 2022-06-02 15:03 | Outpatient (CLI) | payer OTHER, SELFPAY ==
[2022-06-02 17:56] LABS: Alanine Aminotransferase 72 IU/L (<35); Albumin 4.4 g/dL (3.5-5.0); Albumin Globulin Ratio 1.3 (1.0-2.8); Alkaline Phosphatase 97 U/L (38-126); Aspartate Aminotransferase 50 IU/L (14-36); BUN Creatinine Ratio 19.1 (6-22); Bilirubin Total 0.5 mg/dL (0.2-1.3); Blood Urea Nitrogen 17 mg/dL (7-17); Calcium 9.5 mg/dL (8.4-10.2); Carbon Dioxide 26 mmol/L (22-32); Chloride 103 mmol/L (98-107); Estimated Glomerular Filt Rate > 60 mL/min (>60); Globulin 3.5 g/dL (1.7-4.1); Glucose 78 mg/dL (70-100); HEMOLYSIS < 15 (0-50); Potassium 4.2 mmol/L (3.4-5.1); Sodium 140 mmol/L (137-145); Total Protein 7.9 g/dL (6.3-8.2)
== END ==
PROVIDERS: PCP Family Medicine; Referring Provider Family Medicine; Visit Provider Family Medicine
DX: O14.20 HELLP syndrome (HELLP), unspecified trimester (principal)
CPT/HCPCS: 36415; 80053

== ENCOUNTER → 2022-06-29 09:00 | Outpatient (CLI) | payer OTHER, SELFPAY ==
--- NOTE | 2022-06-29 09:01 | DI.US.S_ITS ---
PROCEDURE: US ABDOMEN LIMITED INDICATIONS: ELEVATED LIVER ENZYMES TECHNIQUE: Real-time focused scanning was performed of the abdomen, with image documentation. COMPARISON: None. FINDINGS: The liver demonstrates normal size. The liver demonstrates generalized mildly increased echogenicity, as seen on image 12. This decreases ultrasound sensitivity for detection of hepatic masses. No findings of gallstones or sludge are seen. The gallbladder wall is not thickened, measuring 3 mm or less. No specific pericholecystic fluid is seen. The sonographic Randolph sign is negative. There is no biliary dilatation, the common bile duct measures 3-4 mm. No significant pancreatic abnormality is seen on these images. IMPRESSION: The liver demonstrates increased echogenicity. This finding is nonspecific, yet it is most commonly attributed to fatty infiltration. The gallbladder demonstrates a normal sonographic appearance. No biliary dilatation is seen. Dictated by: Ayo Platt M.D. on 06/29/2022 at 9:27 Approved by: Ayo Platt M.D. on 06/29/2022 at 9:28
== END ==
PROVIDERS: PCP Family Medicine; Referring Provider Family Medicine; Visit Provider Family Medicine
DX: R74.8 Abnormal levels of other serum enzymes (principal)
CPT/HCPCS: 76705

== ENCOUNTER → 2022-07-05 08:26 | Outpatient (CLI) | payer OTHER, SELFPAY ==
[2022-07-05 12:09] LABS: Alanine Aminotransferase 95 IU/L (<35); Albumin 4.5 g/dL (3.5-5.0); Albumin Globulin Ratio 1.5 (1.0-2.8); Alkaline Phosphatase 113 U/L (38-126); Aspartate Aminotransferase 56 IU/L (14-36); Bilirubin Total 0.7 mg/dL (0.2-1.3); Bilirubin Unconjugated 0.7 mg/dL (0.0-1.1); HEMOLYSIS < 15 (0-50); Total Protein 7.5 g/dL (6.3-8.2)
== END ==
PROVIDERS: PCP Family Medicine; Referring Provider Family Medicine; Visit Provider Family Medicine
DX: R74.8 Abnormal levels of other serum enzymes (principal)
CPT/HCPCS: 36415; 80076

== ENCOUNTER 2022-07-28 17:03 | Emergency (ER) | payer OTHER, SELFPAY ==
[2022-07-28 18:15] VITALS: BP 116/62; PULSE 78; RESP 16; TEMP 36.1; O2SAT 98; BMI 26.5
--- NOTE | 2022-07-28 18:31 | DI.US.S_ITS ---
PROCEDURE: US ABDOMEN LIMITED INDICATIONS: Hyperbilirubinemia TECHNIQUE: Real-time focused scanning was performed of the abdomen, with image documentation. COMPARISON: [facility], , US ABDOMEN LIMITED, 06/29/2022, 9:12. FINDINGS: Liver is unremarkable. No stones within the gallbladder. Wall thickness is normal measuring 1.3 mm. Common bile duct measures 3.5 mm. Pancreas is unremarkable. IMPRESSION: Unremarkable exam. Dictated by: Aubrie Paez M.D. on 07/28/2022 at 21:43 Approved by: Aubrie Paez M.D. on 07/28/2022 at 21:43
[2022-07-28 18:59] LABS: Prothrombin Time 11.1 SECONDS (10.1-12.7)
[2022-07-28 19:00] LABS: Add Manual Diff / Slide Review NO; Basophils Absolute Auto 100 /uL (0-100); Eosinophils Absolute Auto 100 /uL (0-450); Hematocrit 39.3 % (36-46); Hemoglobin 12.8 g/dL (12.0-16.0); Lymphocytes Absolute Auto 1800 /uL (1100-4500); Mean Corpuscular HGB Conc 32.6 % (30-36); Mean Corpuscular Hemoglobin 26.1 PG (26-34); Mean Corpuscular Volume 80.1 fL (80-100); Monocytes Absolute Auto 500 /uL (0-900); Neutrophils Absolute Auto 4700 /uL (1500-7000); Platelet Count 369 X10^3/uL (150-400); Red Blood Cell Count 4.91 X10^6/uL (4.0-5.2); Red Cell Distribution Width 13.1 % (11.6-14.8); White Blood Cell Count 7.3 X10^3/uL (4.5-11.0)
[2022-07-28 19:02] LABS: PTT Partial Thromboplastin Tim 35 SECONDS (26-36)
[2022-07-28 19:04] LABS: Acetaminophen < 10 ug/mL (10-30); Alanine Aminotransferase 187 IU/L (<35); Albumin 4.9 g/dL (3.5-5.0); Albumin Globulin Ratio 1.2 (1.0-2.8); Alkaline Phosphatase 138 U/L (38-126); Aspartate Aminotransferase 121 IU/L (14-36); Bilirubin Total 0.9 mg/dL (0.2-1.3); Bilirubin Unconjugated 0.5 mg/dL (0.0-1.1); Blood Urea Nitrogen 17 mg/dL (7-17); Calcium 9.2 mg/dL (8.4-10.2); Carbon Dioxide 25 mmol/L (22-32); Chloride 102 mmol/L (98-107); Estimated Glomerular Filt Rate > 60 mL/min (>60); Ethanol (ETOH) < 10 mg/dL; Glucose 107 mg/dL (70-100); Lipase 105 U/L (23-300); Sodium 140 mmol/L (137-145); Total Protein 8.9 g/dL (6.3-8.2)
[2022-07-28 19:14] LABS: HEMOLYSIS 52 (0-50)
--- NOTE | 2022-07-28 22:14 | ED.RECABL ---
HPI - Recheck/Abnormal Lab/Rx General Chief Complaint: Recheck/Abnormal Lab/Rx Stated Complaint: Bilirubin 0.63->4.10 Time Seen by Provider: 07/28/22 18:31 Source: patient Mode of arrival: Family Vehicle History of Present Illness HPI narrative: Patient is a 27-year-old female. Is several weeks . Since her delivery there has been monitoring of her liver function tests. She had labs drawn this morning and was told to come to the emergency department because of an elevated bilirubin. Patient is completely asymptomatic. She is . She is no abdominal pain. Related Data Home Medications Medication Instructions Recorded Confirmed ascorbic acid (vitamin C) 1,000 mg 1 g PO Q6H 09/09/21 06/02/22 tablet cholecalciferol (vitamin D3) 50 50 mcg PO DAILY 09/09/21 06/02/22 mcg (2,000 unit) capsule prenat.vits,zi,[id number] 1 tab PO DAILY 09/09/21 06/02/22 Previous Rx's Medication Instructions Recorded lidocaine 5 % topical patch 1 patch topical DAILY PRN back 10/12/21 (Lidoderm) pain #15 ea Belt #1 ea 01/11/22 acetaminophen 325 mg tablet 650 mg PO Q6H PRN Fever/Mild Pain 04/16/22 (1-3) #60 tabs docusate sodium 100 mg capsule 200 mg PO DAILY #30 caps 04/16/22 ibuprofen 600 mg tablet 600 mg PO Q6H PRN Fever/Mild Pain 04/16/22 (1-3) #60 tabs labetalol 100 mg tablet 100 mg PO BID #60 tabs 04/16/22 oxycodone 5 mg tablet 5 mg PO Q4H PRN Pain, Moderate 04/16/22 (4-6) #40 tabs Allergies Allergy/AdvReac Type Severity Reaction Status Date / Time No Known Drug Allergies Allergy Verified 07/28/22 18:19 Review of Systems Constitutional Constitutional: Reports system reviewed and no additional complaints, except as documented Cardiovascular Cardiovascular: Reports system reviewed and no additional complaints, except as documented Respiratory Respiratory: Reports system reviewed and no additional complaints, except as documented Gastrointestinal Gastrointestinal: Reports system reviewed and no additional complaints, except as documented Genitourinary Genitourinary: Reports system reviewed and no additional complaints, except as documented Integumentary/Breasts Skin/Breast: Reports system reviewed and no additional complaints, except as documented Neurologic Neurologic: Reports system reviewed and no additional complaints, except as documented Hematologic/Lymphatic On Anticoagulants: No Patient History Medical History HELLP syndrome Surgical History (Updated 04/13/22 @ 12:36 by Tamie Bonilla MD) S/P Social History marital status: unmarried,living together number of children: 0 household members: significant other lives independently: Yes housing: house pets and animals: No education level: college occupational status: unemployed current occupational exposures/hazards: No sp/zoroastrianism: Shinto travel history: recent ([place]) and over 6 months ago seatbelt use: always water heater temp set < 120 deg: Yes working smoke detector in home: Yes fire extinguisher in home: Yes carbon monox detector in home: Yes firearms in home: No do you feel safe at home: Yes Smoking Status: Never smoker second hand exposure: No alcohol intake: former substance use type: does not use during the past year weight has: remained stable well-balanced diet: daily or most days daily servings fruits/ve-4 caffeine: Yes (Limit 200 mg) eating out: 1-3 times/week Type(s) of exercise: walking and regular exercise Smoking Status: Never smoker Substance Use Type: does not use Exam Initial Vital Signs Initial Vital Signs: Vital Signs Temperature 97.0 F L 07/28/22 18:15 Pulse Rate 78 07/28/22 18:15 Respiratory Rate 16 07/28/22 18:15 Blood Pressure 116/62 07/28/22 18:15 Pulse Oximetry 98 07/28/22 18:15 Oxygen Delivery Method 07/28/22 18:15 HENMT Head: normal to inspection Resp Effort & Inspection: normal respiratory effort Cardio Rate: regular rate GI Inspection: normal to inspection Skin General: no rashes or lesions noted Extrem General: normal to inspection Course Orders Ordered: ED Orders 07/28/22 18:31 US abdomen limited Stat 07/28/22 18:40 Acetaminophen Stat Basic Metabolic Panel Stat Complete Blood Count AUTO DIFF Stat Ethanol (ETOH) Stat Hepatic (Liver) Panel Stat Hepatitis Acute Panel Stat Lipase Stat Partial Thromboplastin Time Stat Prothrombin Time INR Stat Vital Signs Vital signs: Vital Signs - 8 hr 07/28/22 18:15 Temperature 97.0 F L Pulse Rate 78 Respiratory Rate 16 Blood Pressure 116/62 Pulse Oximetry 98 Oxygen Delivery Method Room Air MDM - Recheck/Abnormal Lab/Rx Lab Data Attestation: I reviewed the patient's lab results. Result diagrams: 07/28/22 18:40 07/28/22 18:40 Labs: Lab Results 07/28/22 07/28/22 07/28/22 Range/Units 18:40 18:40 18:40 WBC 7.3 (4.5-11.0) X10^3/uL RBC 4.91 (4.0-5.2) X10^6/uL Hgb 12.8 (12.0-16.0) g/dL Hct 39.3 (36-46) % MCV 80.1 (80-100) fL MCH 26.1 (26-34) PG MCHC 32.6 (30-36) % RDW 13.1 (11.6-14.8) % Plt Count 369 (150-400) X10^3/uL Neut % (Auto) 65.0 (50-75) % Lymph % (Auto) 25.0 (25-40) % [place] % (Auto) 7.0 (3-14) % Eos % (Auto) 2.0 (2-4) % Baso % (Auto) 1.0 (0-2) % Neut # (Auto) 4700 (5465-8745) /uL Lymph # (Auto) 1800 (0917-1395) /uL [place] # (Auto) 500 (0-900) /uL Eos # (Auto) 100 (0-450) /uL Baso # (Auto) 100 (0-100) /uL PT 11.1 (10.1-12.7) SECONDS INR 1.0 (0.9-1.3) APTT 35 (26-36) SECONDS Sodium 140 (137-145) mmol/L Potassium 4.0 (3.4-5.1) mmol/L Chloride 102 (98-107) mmol/L Carbon Dioxide 25 (22-32) mmol/L BUN 17 (7-17) mg/dL Creatinine 0.68 (0.52-1.04) mg/dL Estimated GFR > 60 (>60) mL/min BUN/Creatinine Ratio 25.0 H (6-22) Glucose 107 H (70-100) mg/dL Calcium 9.2 (8.4-10.2) mg/dL Total Bilirubin 0.9 (0.2-1.3) mg/dL Conjugated Bilirubin 0.0 (0.0-0.3) md/dL Unconjugated Bilirubin 0.5 (0.0-1.1) mg/dL AST 121 H (14-36) IU/L ALT 187 H (<35) IU/L Alkaline Phosphatase 138 H (38-126) U/L Total Protein 8.9 H (6.3-8.2) g/dL Albumin 4.9 (3.5-5.0) g/dL Globulin 4.0 (1.7-4.1) g/dL Albumin/Globulin Ratio 1.2 (1.0-2.8) Lipase 105 (23-300) U/L Acetaminophen < 10 (10-30) ug/mL Ethyl Alcohol < 10 ( - 10) mg/dL Imaging Data US - abdomen: Radiologist's Impression: Close Abdomen Ultrasound (Signed) Aubrie Paez - 07/28/22 Abdomen Ultrasound (Signed) Ayo Platt - 06/29/22 DI Result 12/10/21 Launch?[place] [address] Ultrasound Report Signed Patient: Gema Szymanski MR#: [id number] : 1995 Acct:[id number] Age/Sex: 27 / F Date of Service: 07/28/22 Loc: ED Accession Number: [id number] ?? Procedure: US abdomen limited Ordering Provider: Laith Smallwood D.O. PROCEDURE: US ABDOMEN LIMITED ? INDICATIONS:? Hyperbilirubinemia ? TECHNIQUE:? Real-time focused scanning was performed of the abdomen, with image documentation.? ? COMPARISON:[facility], US ABDOMEN LIMITED, 06/29/2022, 9:12. ? FINDINGS:? Liver is unremarkable.? No stones within the gallbladder.? Wall thickness is normal measuring 1.3 mm.? Common bile duct measures 3.5 mm. Pancreas is unremarkable. ? IMPRESSION:? Unremarkable exam. ? ? Dictated by: Aubrie Paez M.D. on 07/28/2022 at 21:43 ? ? Approved by: Aubrie Paez M.D. on 07/28/2022 at 21:43?? MDM Narrative Medical decision making narrative: Patient is asymptomatic. Her LFTs today are very similar to what they were this morning however her bilirubin this evening is negative. Unsure why there was a discrepancy between an elevation of 4.1 earlier today and normal bilirubin this evening. They were done at 2 different facilities. Patient is asymptomatic. Right upper quadrant ultrasound is unremarkable. I did discuss the uncertainty of the discrepancy between the 2 labs. She is not jaundiced. No further workup required in the emergency department. Her hepatitis panel was pending at the time of discharge the patient expressed understanding of this. She was given return precautions. She will continue to breastfeed. She expressed understanding and agreement Discharge Plan Departure Patient Disposition: Home Clinical Impression: Transaminitis Activity Restrictions/Additional Instructions: I recommend that tomorrow you contact your primary doctor for a follow-up. Your hepatitis panel was pending at the time of discharge. We will contact you for any abnormalities with this. Return to the emergency department for any new symptoms. Prescriptions: No Action (DME) Belt See Rx Instructions .Route .MEDSUPPLY Qty: 1 0RF Rx Instructions: As directed prenat.vits,zi,[id number] Tablet 1 tab PO DAILY cholecalciferol (vitamin D3) 50 mcg (2,000 unit) capsule 50 mcg PO DAILY ascorbic acid (vitamin C) 1,000 mg tablet 1 g PO Q6H lidocaine [Lidoderm] 5 % adhesive patch,medicated 1 patch topical DAILY PRN (Reason: back pain) Qty: 15 0RF Rx Instructions: leave on most painful area for up to 12 hrs acetaminophen 325 mg Tablet 650 mg PO Q6H PRN (Reason: Fever/Mild Pain (1-3)) Qty: 60 0RF docusate sodium 100 mg Capsule 200 mg PO DAILY Qty: 30 0RF ibuprofen 600 mg Tablet 600 mg PO Q6H PRN (Reason: Fever/Mild Pain (1-3)) Qty: 60 0RF oxycodone 5 mg Tablet 5 mg PO Q4H PRN (Reason: Pain, Moderate (4-6)) Qty: 40 0RF labetalol 100 mg tablet 100 mg PO BID Qty: 60 2RF Referrals: Newlon,Tamie, MD [Primary Care Provider] - Stand Alone Forms: Patient Portal/API
[2022-07-30 00:07] LABS: HBsAg Screen Negative (Negative); Hepatitis A Antibody IgM Negative (Negative); Hepatitis B Core Antibody IgM Negative (Negative); Hepatitis C Antibody 0.1 s/co ratio (0.0-0.9)
== END 2022-07-28 22:34 | disposition home or self-care (01) ==
PROVIDERS: Emergency Provider Emergency Medicine; PCP Family Medicine
DX: R74.01 Elevation of levels of liver transaminase levels (principal)
CPT/HCPCS: 76705; 80048; 80074; 80076; 80320; 80329; 83690; 85025; 85610; 85730; 99283; 99284; G0480